=== PATIENT | female | born 1940 | race Two or more races ===

== ENCOUNTER → 2017-08-09 | Outpatient (CLI) | payer MEDICARE, OTHER ==
[~2017-08-09] MED LIST: CEPH500 PO; Calcium-Mag-Zi1 EACH; ESTR2; HYOS0.375T; IRBE150; LEVFLO500 PO; LEVSOD50; LORA.5 PO; NASACORT10.8 ML; OXYACE5T PO; OXYACE7.5T; OXYM.05NI; TOCO400; TRIA55OI; Zoloft50 MG PO
== END | disposition home or self-care (01) ==
LOC: LAB SHORT 11:39 → LAB 11:39
DX: N39.0 Urinary tract infection, site not specified (principal)
CPT/HCPCS: 87086

== ENCOUNTER → 2019-09-12 | Outpatient (CLI) | payer MEDICARE, OTHER ==
[2019-09-12 15:00] LABS: BASOPHILS ABSOLUTE AUTO 0.07 K/mm3 (0.00-0.23); BASOPHILS PERCENT AUTO 1 % (0-2); EOSINOPHILS ABSOLUTE AUTO 0.33 K/mm3 (0.00-0.68); EOSINOPHILS PERCENT AUTO 5 % (0-6); Hematocrit 35.2 % (33.0-51.0); Hemoglobin 11.3 g/dL (11.5-16.0); IMMATURE GRAN ABSOLUTE AUTO 0.03 K/mm3 (0.00-0.10); IMMATURE GRAN PERCENT AUTO 0 % (0-1); LYMPHOCYTES ABSOLUTE AUTO 0.91 K/mm3 (0.84-5.20); LYMPHOCYTES PERCENT AUTO 13 % (21-46); MONOCYTES ABSOLUTE AUTO 0.53 K/mm3 (0.16-1.47); MONOCYTES PERCENT AUTO 8 % (4-13); Mean Corpuscular HGB 30.9 pg (26.0-34.0); Mean Corpuscular HGB Conc 32.1 g/dL (31.5-36.5); Mean Corpuscular Volume 96 fL (80-100); Mean Platelet Volume 10.1 fL (9.1-12.4); NEUTROPHILS PERCENT AUTO 73 % (41-73); Platelet Count 303 K/mm3 (150-400); RDW Coefficient Variation 12.4 % (11.7-14.2); RDW Standard Deviation 43.9 fL (35.1-46.3); Red Blood Cell Count 3.66 M/mm3 (3.80-5.20); White Blood Cell Count 6.87 K/mm3 (4.00-11.30)
[2019-09-12 16:13] LABS: Alanine Aminotransfer (ALT/SGP 15 U/L (12-78); Albumin, Blood 3.3 g/dL (3.4-5.0); Albumin/Globulin Ratio 0.8 (0.8-1.8); Alk Phos 43 U/L (50-136); Anion Gap 8 mmol/L (6-16); Aspartate Aminotrans (AST/SGOT 16 U/L (12-37); Bilirubin, Total 0.3 mg/dL (0.1-1.0); Blood Urea Nitrogen 19 mg/dL (8-24); Bun/Creatinine Ratio 17.3 (12.0-20.0); CHOL/HDL RATIO 2.8; CO2, Blood 23 mmol/L (21-32); Calcium, Blood 7.9 mg/dL (8.5-10.1); Chloride, Blood 106 mmol/L (98-108); Cholesterol 157 mg/dL (50-200); Glomerular Filtration Rate 51 (60-); Glucose, Blood 92 mg/dL (70-99); HDL Cholesterol 57 mg/dL (>39); LDL/HDL RATIO 1.2; Low Density Lipoprotein Chol 69 mg/dL (0-110); Potassium, Blood 4.4 mmol/L (3.5-5.5); Sodium, Blood 137 mmol/L (136-145); Total Protein, Blood 7.3 g/dL (6.4-8.2); Triglycerides 154 mg/dL (30-160); Very Low Density Lipoprot Chol 30 mg/dL (6-32)
== END | disposition home or self-care (01) ==
LOC: LAB 09:25 → LAB SHORT 09:25
PROVIDERS: Family Medicine
DX: E03.9 Hypothyroidism, unspecified (principal); I10 Essential (primary) hypertension; E66.9 Obesity, unspecified; R60.9 Edema, unspecified; Z68.38 Body mass index [BMI] 38.0-38.9, adult
CPT/HCPCS: 80053; 80061; 84443; 85025

== ENCOUNTER → 2022-07-27 | Outpatient (CLI) | payer MEDICARE, OTHER ==
[2022-07-28 09:45] LABS: BASOPHILS ABSOLUTE AUTO 0.08 K/mm3 (0.00-0.23); BASOPHILS PERCENT AUTO 1 % (0-2); EOSINOPHILS ABSOLUTE AUTO 0.32 K/mm3 (0.00-0.68); EOSINOPHILS PERCENT AUTO 5 % (0-6); Hematocrit 35.7 % (33.0-51.0); Hemoglobin 11.9 g/dL (11.5-16.0); IMMATURE GRAN ABSOLUTE AUTO 0.03 K/mm3 (0.00-0.10); IMMATURE GRAN PERCENT AUTO 0 % (0-1); LYMPHOCYTES ABSOLUTE AUTO 1.27 K/mm3 (0.84-5.20); LYMPHOCYTES PERCENT AUTO 18 % (21-46); MONOCYTES ABSOLUTE AUTO 0.63 K/mm3 (0.16-1.47); MONOCYTES PERCENT AUTO 9 % (4-13); Mean Corpuscular HGB 30.7 pg (26.0-34.0); Mean Corpuscular HGB Conc 33.3 g/dL (31.5-36.5); Mean Corpuscular Volume 92 fL (80-100); Mean Platelet Volume 9.5 fL (9.1-12.4); NEUTROPHILS ABSOLUTE AUTO 4.72 K/mm3 (1.96-9.15); NEUTROPHILS PERCENT AUTO 67 % (41-73); Platelet Count 333 K/mm3 (150-400); RDW Coefficient Variation 12.3 % (11.7-14.2); RDW Standard Deviation 41.6 fL (35.1-46.3); Red Blood Cell Count 3.87 M/mm3 (3.80-5.20); White Blood Cell Count 7.05 K/mm3 (4.00-11.30)
[2022-07-28 10:03] LABS: Alanine Aminotransfer (ALT/SGP 25 U/L (12-78); Albumin, Blood 3.7 g/dL (3.4-5.0); Albumin/Globulin Ratio 0.9 (0.8-1.8); Alk Phos 62 U/L (50-136); Anion Gap 6 mmol/L (6-16); Aspartate Aminotrans (AST/SGOT 23 U/L (12-37); Bilirubin, Total 0.3 mg/dL (0.1-1.0); Blood Urea Nitrogen 29 mg/dL (8-24); Bun/Creatinine Ratio 25.7 (12.0-20.0); CHOL/HDL RATIO 2.5; CO2, Blood 24 mmol/L (21-32); Calcium, Blood 8.6 mg/dL (8.5-10.1); Chloride, Blood 104 mmol/L (98-108); Cholesterol 157 mg/dL (50-200); Creatinine, Blood 1.13 mg/dL (0.40-1.00); Globulin, Blood 4.3 g/dL (2.2-4.0); Glomerular Filtration Rate 49 (60-); Glucose, Blood 87 mg/dL (70-99); HDL Cholesterol 62 mg/dL (>39); LDL/HDL RATIO 1.1; Low Density Lipoprotein Chol 70 mg/dL (0-110); Potassium, Blood 4.5 mmol/L (3.5-5.5); Sodium, Blood 134 mmol/L (136-145); Triglycerides 126 mg/dL (30-160); Very Low Density Lipoprot Chol 25 mg/dL (6-32)
== END | disposition home or self-care (01) ==
LOC: LAB SHORT 17:08 → LAB 17:08
PROVIDERS: Nurse Practitioner Family
DX: Z13.6 Encounter for screening for cardiovascular disorders (principal); I12.9 Hypertensive chronic kidney disease with stage 1 through stage 4 chronic kidney disease, or unspecified chronic kidney disease; N18.30 Chronic kidney disease, stage 3 unspecified
CPT/HCPCS: 80053; 80061; 85025

== ENCOUNTER 2024-05-01 16:46 | Inpatient (IN) | payer MEDICARE, OTHER ==
[~2024-05-01] VITALS: Ht 149.9 cm; Wt 72.6 kg
[2024-05-01] MEDS ORDERED: NS 1,000 ML IV SCH (18:05)
[2024-05-01 18:10] LABS: BASOPHILS ABSOLUTE AUTO 0.04 K/mm3 (0.00-0.23); BASOPHILS PERCENT AUTO 0 % (0-2); EOSINOPHILS ABSOLUTE AUTO 0.13 K/mm3 (0.00-0.68); EOSINOPHILS PERCENT AUTO 1 % (0-6); Hematocrit 38.6 % (33.0-51.0); Hemoglobin 13.4 g/dL (11.5-16.0); IMMATURE GRAN ABSOLUTE AUTO 0.22 K/mm3 (0.00-0.10); IMMATURE GRAN PERCENT AUTO 2 % (0-1); LYMPHOCYTES ABSOLUTE AUTO 0.91 K/mm3 (0.84-5.20); LYMPHOCYTES PERCENT AUTO 9 % (21-46); MONOCYTES ABSOLUTE AUTO 0.53 K/mm3 (0.16-1.47); MONOCYTES PERCENT AUTO 5 % (4-13); Mean Corpuscular HGB 31.6 pg (26.0-34.0); Mean Corpuscular HGB Conc 34.7 g/dL (31.5-36.5); Mean Corpuscular Volume 91 fL (80-100); NEUTROPHILS PERCENT AUTO 81 % (41-73); Platelet Count 465 K/mm3 (150-400); RDW Coefficient Variation 12.7 % (11.7-14.2); RDW Standard Deviation 41.8 fL (35.1-46.3); Red Blood Cell Count 4.24 M/mm3 (3.80-5.20); White Blood Cell Count 9.73 K/mm3 (4.00-11.30)
[2024-05-01 18:33] LABS: CORONAVIRUS COVID-19 AG Negative (NEGATIVE); INFLUENZA A AG Negative (NEGATIVE); INFLUENZA B AG Negative (NEGATIVE)
[2024-05-01] MEDS ORDERED: Acetaminophen 500 MG Tab PO ONE (19:30)
[2024-05-01 19:36] LABS: Albumin, Blood 2.9 g/dL (3.4-5.0); Albumin/Globulin Ratio 0.6 (0.8-1.8); Bilirubin, Total 0.8 mg/dL (0.1-1.0); Bun/Creatinine Ratio 23.4 (12.0-20.0); Creatinine, Blood 1.58 mg/dL (0.40-1.00); Globulin, Blood 4.8 g/dL (2.2-4.0); Potassium, Blood 3.7 mmol/L (3.5-5.5); Total Protein, Blood 7.7 g/dL (6.4-8.2)
[2024-05-01] MEDS ORDERED: Ondansetron HCl 2 MG / ML 2ML Vial IV PRN (23:30)
[2024-05-01] MEDS ORDERED: Acetaminophen 325 MG TABLET PO PRN (23:30)
[2024-05-01] MEDS ORDERED: FLU VACC TS2024-25(6MOS UP)/PF 45 MCG/0.5 ML SYRINGE IM ONE (23:30)
[2024-05-01] MEDS ORDERED: levETIRAcetam 1,000 MG in NS 100 ML IV SCH (23:38)
[2024-05-01] MEDS ORDERED: levETIRAcetam 500 MG in NS 100 ML IV SCH (23:50)
[2024-05-02 05:41] LABS: BASOPHILS ABSOLUTE AUTO 0.05 K/mm3 (0.00-0.23); BASOPHILS PERCENT AUTO 0 % (0-2); EOSINOPHILS ABSOLUTE AUTO 0.09 K/mm3 (0.00-0.68); EOSINOPHILS PERCENT AUTO 1 % (0-6); Hematocrit 32.6 % (33.0-51.0); Hemoglobin 11.2 g/dL (11.5-16.0); IMMATURE GRAN PERCENT AUTO 2 % (0-1); LYMPHOCYTES ABSOLUTE AUTO 0.88 K/mm3 (0.84-5.20); LYMPHOCYTES PERCENT AUTO 8 % (21-46); MONOCYTES ABSOLUTE AUTO 0.53 K/mm3 (0.16-1.47); MONOCYTES PERCENT AUTO 5 % (4-13); Mean Corpuscular HGB 31.5 pg (26.0-34.0); Mean Corpuscular HGB Conc 34.4 g/dL (31.5-36.5); Mean Corpuscular Volume 92 fL (80-100); Mean Platelet Volume 8.7 fL (9.1-12.4); NEUTROPHILS PERCENT AUTO 84 % (41-73); Platelet Count 373 K/mm3 (150-400); RDW Coefficient Variation 12.7 % (11.7-14.2); Red Blood Cell Count 3.55 M/mm3 (3.80-5.20); White Blood Cell Count 11.15 K/mm3 (4.00-11.30)
[2024-05-02 06:00] LABS: Albumin, Blood 2.4 g/dL (3.4-5.0); Albumin/Globulin Ratio 0.6 (0.8-1.8); Bilirubin, Total 0.7 mg/dL (0.1-1.0); Calcium, Blood 8.4 mg/dL (8.5-10.1); Creatinine, Blood 1.54 mg/dL (0.40-1.00); Globulin, Blood 4.1 g/dL (2.2-4.0); Magnesium, Blood 2.1 mg/dL (1.6-2.4); Potassium, Blood 3.5 mmol/L (3.5-5.5); Total Protein, Blood 6.5 g/dL (6.4-8.2)
[2024-05-02] MEDS ORDERED: Levothyroxine Sodium 0.05 MG Tab PO SCH (06:00)
[2024-05-02] MEDS ORDERED: Enoxaparin 30 MG/0.3 ML SYR SC SCH (09:00)
[2024-05-02] MEDS ORDERED: Irbesartan 150 MG Tab PO SCH (09:00)
[2024-05-02 09:29] VITALS: BP 137/81
--- NOTE | 2024-05-02 12:54 | NUR ---
REPORT RECIEVED FROM ER NURSE AT 1115. PT ARRIVED TO PCU AT 1243 VIA GURNEY AND ON RA. PT ABLE TO TRANSFER SELF FROM GURNEY TO PCU BED WITH MINIMAL ASSISTANCE. PT A/OX4 AND COOPERATIVE. RASH NOTED TO PT'S BILAT LEGS THAT REACHES UP TO PT'S CHEST. PT RPEROTED RASH "CAME ON SUNDAY." PT DENIES RASH GRADUALLY COMING ON. NO SOB NOTED. DENIES CHEST PAIN. REPORTS PAIN OF LEGS ONLY.
[2024-05-02] MEDS ORDERED: OxyCODONE HCL 5 MG TAB PO STA (14:19)
[2024-05-02] MEDS ORDERED: OxyCODONE HCL 5 MG TAB PO ONE (14:20)
[2024-05-02] MEDS ORDERED: ONDA4ODT MM (14:29)
[2024-05-02] MEDS ORDERED: LEVE500 PO (14:29)
[2024-05-02] MEDS ORDERED: Ativan1 MG PO (14:30)
[2024-05-02] MEDS ORDERED: PRED20 PO (14:30)
[2024-05-02] MEDS ORDERED: Benadryl Itch28.3 G1 TOP (14:30)
[2024-05-02] MEDS ORDERED: OXYC5 PO (14:31)
[2024-05-02] MEDS ORDERED: DiphenhydrAMINE HCL/Zinc Acet Cream TOP ONE (15:00)
--- NOTE | 2024-05-02 15:18 | NUR ---
MET WITH PATIENT AND HER DAUGHTER IN LAW RADHA. SOBIA DOES NOT WANT TO PRUSUE ANY TYPE OF CURATIVE OR LIFE PROLONGING TREATMENT. WE DISCUSSED HOSPICE AND THE SUPPORT THEY WOULD PROVIDE. SHE WAS AGREEABLE. SHE REQUESTS THAT ALL CALLS BE MADE TO HER SON DAMIEN FOR ARRANGMENTS AT [phone]. PC WILL CONTINUE TO BE AVALIABLE
--- NOTE | 2024-05-02 17:42 | NUR ---
DISCHARGE SUMMARY - PT DISCHARGED AT 1500. INSTRUCTIONS GIVEN VERBALLY TO PTS SON AND DTR IN LAW, WRITTEN PRESCRIPTION GIVEN TO SON. REMOVED IV AND DRESSED IN GAUZE AND COBAN. THIS RN ASSISTED PT IN DRESSING AND TO WHEELCHAIR. AID PUSHED PT IN WHEELCHAIR TO EXIT ACCOMPANIED BY DTR IN LAW AND ALL BELONGINGS RETURNED TO PT.
== END 2024-05-02 15:10 | disposition hospice, home (50) | DRG 54 ==
LOC: ER 16:46 → PCU 16:47 → ERHOLD 16:47 → PCU 05-02 12:43
PROVIDERS: Physician Assistant; ADMIT Student in an Organized Health Care Education/Training Program
DX: C71.2 Malignant neoplasm of temporal lobe (principal); G93.6 Cerebral edema; C78.01 Secondary malignant neoplasm of right lung; C78.02 Secondary malignant neoplasm of left lung; N17.9 Acute kidney failure, unspecified; R56.9 Unspecified convulsions; E03.9 Hypothyroidism, unspecified; N18.9 Chronic kidney disease, unspecified; Z66 Do not resuscitate; I12.9 Hypertensive chronic kidney disease with stage 1 through stage 4 chronic kidney disease, or unspecified chronic kidney disease; Z88.0 Allergy status to penicillin; Z88.2 Allergy status to sulfonamides; Z51.5 Encounter for palliative care; Z79.890 Hormone replacement therapy
CPT/HCPCS: 36415; 70450; 71045; 71260; 73590; 80053; 83605; 83735; 84145; 85025; 85651; 86140; 87428-QW; 93005; 93010; 96361; 96365; 96366; 96372; 99285-25; A9270; G0378; J1650; J1953; J7030; Q9967